=== PATIENT | female | born 1965 | race Caucasian/White ===

== ENCOUNTER → 2016-10-19 | Outpatient (CLI) | payer OTHER ==
--- NOTE | 2016-10-19 16:53 | MA ---
Screening Digital Mammogram With iCAD Analysis Clinical Indications: Routine screening. Her paternal grandmother was diagnosed with breast cancer in her 70s. Technique: Standard cephalocaudal and mediolateral oblique projections are obtained. The examination is processed by the iCAD computer-aided detection system. Comparison: July 2015, June 2014, March 2013, January 2012, January 2011, December 2009. Breast density: Type C; Heterogeneously dense. Findings: CAD was reviewed. There is possible developing architectural change in the anterior lower m edial left breast. No suspicious microcalcifications are seen. The right breast is stable in appearan ce. Impression: Possible developing left breast architectural change requires further evaluation. BI-RADS 0. Recommendation: Spot compression assessment of the left breast with ultrasound suggested if the abnor mality persists on diagnostic evaluation. [facility] will send a result letter to the patient. Dense breast parenchyma diminishes mammographic sensitivity. Negative mammography should not preclude additional workup of a clinically suspicious finding. The patient's information is entered into a reminder system with a target due date for her next mammo gram.
== END ==
LOC: BMCIMAGING 14:39
DX: Z12.31 Encounter for screening mammogram for malignant neoplasm of breast (principal)
CPT/HCPCS: G0202

== ENCOUNTER → 2016-10-29 | Outpatient (CLI) | payer OTHER ==
--- NOTE | 2016-10-29 13:20 | MA ---
Left Diagnostic Digital Mammogram with iCAD Clinical Indications: Possible architectural distortion on recent screening mammogram. Technique: Digital spot compression CC, spot mediolateral oblique and true lateral views. This exami nation was processed by the iCAD computer-aided detection system. Comparison: Recent mammogram. 2016, 2014, 2013 Breast Density: 3, 50-75%. Findings: Previous asymmetric density identified is no longer detected on the additional views or cedric e lateral views. No architectural distortion. This is consistent with normal overlapping breast paren chyma. Impression: ACR BI-RADS 2: Benign left mammogram. Recommendation: Annual mammograms with next screening mammograms in October 2017. [facility] will send a result letter to the patient. Negative mammography should not preclude additional workup of a clinically suspicious finding. Findings and recommendations have been discussed with the patient who agrees with the plan. The patient's information is entered into a reminder system with a target due date for her next mammo gram.
== END ==
LOC: BMCIMAGING 12:50
PROVIDERS: ATTEND Family Medicine
DX: Z12.39 Encounter for other screening for malignant neoplasm of breast (principal)
CPT/HCPCS: G0206

== ENCOUNTER → 2017-06-25 | Outpatient (CLI) | payer OTHER ==
--- NOTE | 2017-06-25 11:13 | CPEKG ---
Heart Rate: 76 RR Interval: 789 P-R Interval: 140 QRSD Interval: 82 QT Interval: 384 QTC Interval: 432 P [place]: 66 QRS [place]: 9 T Wave [place]: 56 EKG Severity - ABNORMAL ECG - EKG Impression: SINUS RHYTHM EKG Impression: ATRIAL PREMATURE COMPLEX EKG Impression: NONSPECIFIC T ABNORMALITIES, LATERAL LEADS Electronically Signed By: Nathan Lane 25-Jun-2017 12:22:29
== END ==
LOC: FCP 10:48
PROVIDERS: ATTEND General Practice
DX: R00.2 Palpitations (principal); R42 Dizziness and giddiness

== ENCOUNTER 2017-06-29 13:19 | Observation (INO) | payer OTHER ==
--- NOTE | 2017-06-29 13:29 | EDPHY ---
H & P Stated Complaint: palpitations/tachycardia/dizzy Time Seen by Provider: 06/29/17 13:29 HPI/ROS: CHIEF COMPLAINT: Palpitations, feeling flushed, presyncope HISTORY OF PRESENT ILLNESS: The patient presents to the ED with complaints of palpitations, tachycardia, presyncope and a sensation of flushing which has been present for the morning. She reports she has been struggling with these symptoms episodically for the past 6 weeks. She did have an EKG performed which demonstrated evidence of PACs. The patient reports she has had a dry nonproductive cough for the past several weeks. The patient denies any complaints of asymmetric calf pain or swelling. The patient denies any complaints of pleuritic or exertional chest pain. The patient reports she is physically active without symptoms of increasing dyspnea. The patient denies recent surgery or prolonged travel. The patient has no complaints of fever, cough or congestion. REVIEW OF SYSTEMS: A comprehensive 10 point review of systems is otherwise negative aside from elements mentioned in the history of present illness. Source: Patient - Personal History LMP (Females 10-55): Over 28 Days Ago Current Tetanus/Diphtheria Vaccine: Yes - Medical/Surgical History Hx Asthma: No Hx Chronic Respiratory Disease: No Hx Diabetes: No Hx Cardiac Disease: Yes Hx Renal Disease: No Hx Cirrhosis: No Hx Alcoholism: No Hx HIV/AIDS: No Hx Splenectomy or Spleen Trauma: No Other PMH: pac - Social History Smoking Status: Never smoked - Physical Exam Exam: General Appearance: Alert, no distress Eyes: Pupils equal and round no pallor or injection ENT, Mouth: Mucous membranes moist Respiratory: There are no retractions, lungs are clear to auscultation Cardiovascular: Tachycardic 145, regular Gastrointestinal: Abdomen is soft and nontender, no masses, bowel sounds normal Neurological: A&O, normal motor function, normal sensory exam, normal cranial nerves Skin: Warm and dry, no rashes Musculoskeletal: Neck is supple nontender Extremities: symmetrical, full range of motion Constitutional: Initial Vital Signs Temperature (C) 36.8 C 06/29/17 13:24 Heart Rate 145 H 06/29/17 13:24 Respiratory Rate 20 06/29/17 13:24 Blood Pressure 91/78 L 06/29/17 13:24 O2 Sat (%) 98 06/29/17 13:24 O2 Delivery Mode Room Air Allergies/Adverse Reactions: morphine Allergy (Verified 06/29/17 13:23) contrast iodine Allergy (Uncoded 06/29/17 13:23) Home Medications: Medication Instructions Recorded Progesterone 06/29/17 Medical Decision Making - Diagnostics EKG Interpretation: EKG: Complete interpretation has been separately recorded in the [employer] archive. Summary impression: Atrial fibrillation/flutter, rate 139 Imaging Results: Imaging Impressions Extremity Venous Study 06/29/17 15:23 Impression: There is no sonographic evidence of deep or superficial venous thrombosis in either leg. Findings were discussed with Alen Bray MD at 16:17, on 06/29/2017. Chest X-Ray 06/29/17 16:27 Impression: Normal. Clear lungs. No acute process. Chest x-ray PA lateral: Images reviewed by myself, negative for acute disease by my interpretation. ED Course/Re-evaluation: The patient presents the ED with episodic palpitations for the past several weeks. She was noted to have atrial flutter upon arrival. This resolved spontaneously while in the emergency department. Additionally the patient has had a dry nonproductive cough over the past several weeks. The patient was noted to have an elevated D-dimer of 1.0. The patient has a severe contrast allergy. She underwent bilateral lower extremity leg ultrasounds which demonstrated no evidence of a DVT. Given the patient's acute respiratory complaints with atrial tachycardia I do feel that we should exclude pulmonary embolism as an etiology of her symptoms. I have ordered a ventilation perfusion scan which can be performed later this evening. I do feel the patient should be admitted for further workup and observation. Consultation was made with Dr. Quick from the hospitalist service. Differential Diagnosis: Differential diagnosis considered includes atrial fibrillation, atrial flutter, DVT, PE, renal failure, myocardial infarction, metabolic abnormality - Data Points Laboratory Results: Laboratory Results 06/29/17 13:35 06/29/17 13:35 06/29/17 06/29/17 06/29/17 13:35 13:35 13:35 WBC 7.46 10^3/uL 10^3/uL (3.80-9.50) RBC 4.26 10^6/uL 10^6/uL (4.18-5.33) Hgb 14.5 g/dL g/dL (12.6-16.3) Hct 42.5 % % (38.0-47.0) MCV 99.8 fL fL (81.5-99.8) MCH 34.0 pg pg (27.9-34.1) MCHC 34.1 g/dL g/dL (32.4-36.7) RDW 12.8 % % (11.5-15.2) Plt Count 351 10^3/uL 10^3/uL (150-400) MPV 8.9 fL fL (8.7-11.7) Neut % (Auto) 66.6 % % (39.3-74.2) Lymph % (Auto) 22.8 % % (15.0-45.0) [place] % (Auto) 6.6 % % (4.5-13.0) Eos % (Auto) 3.2 % % (0.6-7.6) Baso % (Auto) 0.5 % % (0.3-1.7) Nucleat RBC Rel Count 0.0 % % (0.0-0.2) Absolute Neuts (auto) 4.97 10^3/uL 10^3/uL (1.70-6.50) Absolute Lymphs (auto) 1.70 10^3/uL 10^3/uL (1.00-3.00) Absolute Monos (auto) 0.49 10^3/uL 10^3/uL (0.30-0.80) Absolute Eos (auto) 0.24 10^3/uL 10^3/uL (0.03-0.40) Absolute Basos (auto) 0.04 10^3/uL 10^3/uL (0.02-0.10) Absolute Nucleated RBC 0.00 10^3/uL 10^3/uL (0-0.01) Immature Gran % 0.3 % % (0.0-1.1) Immature Gran # 0.02 10^3/uL 10^3/uL (0.00-0.10) PT 13.0 SEC SEC (12.0-15.0) INR 0.99 (0.83-1.16) D-Dimer 1.12 ug/mLFEU H ug/mLFEU (0.00-0.50) Sodium 136 mEq/L mEq/L (134-144) Potassium 4.0 mEq/L mEq/L (3.5-5.2) Chloride 103 mEq/L mEq/L (97-110) Carbon Dioxide 23 mEq/l mEq/l (22-31) Anion Gap 10 mEq/L mEq/L (8-16) BUN 15 mg/dL mg/dL (7-23) Creatinine 0.9 mg/dL mg/dL (0.6-1.0) Estimated GFR > 60 Glucose 111 mg/dL H mg/dL (70-100) Calcium 9.7 mg/dL mg/dL (8.5-10.4) Troponin I < 0.012 ng/mL ng/mL (0.000-0.034) NT-Pro-B Natriuret Pep 97 pg/mL pg/mL (0-125) Medications Given: Discontinued Medications Diphenhydramine HCl (Benadryl Injection) 50 mg IVP EDNOW ONE Stop: 06/29/17 15:18 Last Admin: 06/29/17 15:55 Dose: Not Given Sodium Chloride (Ns) 1,000 mls @ 0 mls/hr IV EDNOW ONE; Wide Open PRN Reason: Protocol Stop: 06/29/17 13:42 Last Admin: 06/29/17 13:43 Dose: 1,000 mls Methylprednisolone Sodium Succinate (Solu-Medrol) 125 mg IVP EDNOW ONE Stop: 06/29/17 15:18 Last Admin: 06/29/17 15:55 Dose: Not Given Departure - Departure Disposition: [facility] Inpatient Acute Clinical Impression: Atrial flutter, Elevated d-dimer Condition: Good
--- NOTE | 2017-06-29 13:33 | CPEKG ---
Heart Rate: 139 RR Interval: 432 QRSD Interval: 74 QT Interval: 304 QTC Interval: 463 QRS [place]: 1 T Wave [place]: 69 EKG Severity - ABNORMAL ECG - EKG Impression: A-FLUTTER W/ VARIED AV BLOCK, A-RATE 294 EKG Impression: LOW VOLTAGE IN FRONTAL LEADS EKG Impression: BORDERLINE ST DEPRESSION, ANTEROLATERAL LEADS Electronically Signed By: Alen Bray 29-Jun-2017 16:27:35
[2017-06-29] MEDS ORDERED: NS 1,000 ML IV ONE (13:41)
[2017-06-29 13:49] LABS: % IMMATURE GRANULYOCYTES 0.3 % (0.0-1.1); ABSOLUTE IMMATURE GRANULOCYTES 0.02 10^3/uL (0.00-0.10); ADD DIFF? NO; ADD MORPH? NO; ADD SCAN? NO; ATYPICAL LYMPHOCYTE FLAG 0 (0-99); FRAGMENT RBC FLAG 0 (0-99); HEMATOCRIT 42.5 % (38.0-47.0); HEMOGLOBIN 14.5 g/dL (12.6-16.3); LEFT SHIFT FLG 0 (0-99); LIPEMIA HEMOLYSIS FLAG 90 (0-99); MEAN CELL HEMOGLOBIN CONCENTR. 34.1 g/dL (32.4-36.7); MEAN CELL VOLUME 99.8 fL (81.5-99.8); MEAN PLATELET VOLUME 8.9 fL (8.7-11.7); PLATELET CLUMPS FLAG 0 (0-99); PLATELET COUNT 351 10^3/uL (150-400); RED BLOOD CELL COUNT 4.26 10^6/uL (4.18-5.33); RED CELL DISTRIBUTION WIDTH 12.8 % (11.5-15.2)
[2017-06-29 13:57] LABS: ANION GAP 10 mEq/L (8-16); CALCIUM 9.7 mg/dL (8.5-10.4); CARBON DIOXIDE 23 mEq/l (22-31); CHLORIDE 103 mEq/L (97-110); CREATININE 0.9 mg/dL (0.6-1.0); GLOMERULAR FILTRATION RATE > 60; GLUCOSE 111 mg/dL (70-100); SODIUM 136 mEq/L (134-144)
[2017-06-29 14:00] LABS: INR 0.99 (0.83-1.16)
[2017-06-29 14:27] LABS: TROPONIN I < 0.012 ng/mL (0.000-0.034)
[2017-06-29] MEDS ORDERED: IOPAMIDOL (ISOVUE 370) 100 ML BTL IV ONE (15:11)
[2017-06-29] MEDS ORDERED: methylPREDNISolone SOD SUCC 125 MG/2 ML VIAL IVP ONE (15:17)
[2017-06-29] MEDS ORDERED: ACETAMINOPHEN 325 MG TAB PO PRN (19:49)
[2017-06-29] MEDS ORDERED: ONDANSETRON DISINTEGRATING 4 MG TAB PO PRN (19:49)
[2017-06-29] MEDS ORDERED: ONDANSETRON 4 MG/2 ML VIAL IVP PRN (19:49)
--- NOTE | 2017-06-29 20:18 | PDGENHP ---
History and Physical - Chief Complaint Acute palpitations - History of Present Illness primary care provider: Dr. Emanuel Antoine HPI: 51-year-old female presents with acute palpitations characterized as fast , noticeable beating located in her upper chest with associated flushing, shortness of breath and fatigue. The patient reports the onset of symptoms approximately 6 weeks ago and duration has been intermittent thereafter. Occasionally the symptoms occur at rest, and on other times they are provoked exacerbated by physical activity. She has become notably symptomatic while playing tennis well as ambulating up flights of stairs. That being said, there have been occasions where the patient has attempted to provoked the symptoms while walking up flights of stairs at her primary care provider's office, and has been unable to do so. The only other associated symptom is a nonproductive cough which has been fairly persistent over the last 2 weeks and has been improving recently. The patient sought medical attention at her primary care provider office, and her electrolytes were reportedly normal, EKG reportedly demonstrated symptomatic PACs. History Information - Allergies/Home Medication List Allergies/Adverse Reactions: morphine Allergy (Mild, Verified 06/29/17 17:47) Itching codeine Allergy (Verified 06/29/17 17:47) Itching contrast iodine Allergy (Uncoded 06/29/17 13:23) Home Medications: Herbals/Supplements -Info Only 1 ea PO DAILY 06/29/17 [Last Taken Unknown] Multivitamins [Multivitamin (*)] 1 each PO DAILY 06/29/17 [Last Taken Unknown] Progesterone, Micronized [Progesterone] 100 mg PO HS 06/29/17 [Last Taken ] I have personally reviewed and updated: family history, medical history, social history, surgical history - Past Medical History Additional medical history: PACs. Mitral valve prolapse as a child - Surgical History Reports: no pertinent surgical hx - Family History Additional family history: no family history of atrial fibrillation - Social History Smoking Status: Never smoked Alcohol Use: Occasionally (no alcohol withdrawal history) Drug Use: Other ( occasionally takes CBD oil for symptomatic anxiety) Additional social history: very physically active, plays tennis, walks her dogs Review of Systems Review of Systems: ROS: 10pt was reviewed & negative except for what was stated in HPI & below Constitutional: Reports: weakness Cardiac: Reports: palpitations Respiratory: Reports: shortness of breath Physical Exam Physical Exam: Temp Pulse Resp BP Pulse Ox 36.9 C 67 13 122/73 H 97 06/29/17 19:49 06/29/17 19:49 06/29/17 19:49 06/29/17 19:49 06/29/17 19:49 Constitutional: no apparent distress, appears nourished, not in pain Eyes: PERRL, anicteric sclera, EOMI Ears, Nose, Mouth, Throat: moist mucous membranes, hearing normal, ears appear normal, no oral mucosal ulcers Cardiovascular: regular rate and rhythym, no murmur, rub, or gallop, No edema Respiratory: no respiratory distress, no rales or rhonchi, clear to auscultation Gastrointestinal: normoactive bowel sounds, soft, non-tender abdomen, no palpable masses Skin: No abrasion, No rash Neurologic: AAOx3, sensation intact bilaterally, No weakness, No facial droop Psychiatric: interacting appropriately, not anxious, not encephalopathic, thought process linear Lab Data & Imaging Review 06/29/17 13:35 06/29/17 13:35 WBC 7.46 10^3/uL (3.80-9.50) 06/29/17 13:35 RBC 4.26 10^6/uL (4.18-5.33) 06/29/17 13:35 Hgb 14.5 g/dL (12.6-16.3) 06/29/17 13:35 Hct 42.5 % (38.0-47.0) 06/29/17 13:35 MCV 99.8 fL (81.5-99.8) 06/29/17 13:35 MCH 34.0 pg (27.9-34.1) 06/29/17 13:35 MCHC 34.1 g/dL (32.4-36.7) 06/29/17 13:35 RDW 12.8 % (11.5-15.2) 06/29/17 13:35 Plt Count 351 10^3/uL (150-400) 06/29/17 13:35 MPV 8.9 fL (8.7-11.7) 06/29/17 13:35 Neut % (Auto) 66.6 % (39.3-74.2) 06/29/17 13:35 Lymph % (Auto) 22.8 % (15.0-45.0) 06/29/17 13:35 [place] % (Auto) 6.6 % (4.5-13.0) 06/29/17 13:35 Eos % (Auto) 3.2 % (0.6-7.6) 06/29/17 13:35 Baso % (Auto) 0.5 % (0.3-1.7) 06/29/17 13:35 Nucleat RBC Rel Count 0.0 % (0.0-0.2) 06/29/17 13:35 Absolute Neuts (auto) 4.97 10^3/uL (1.70-6.50) 06/29/17 13:35 Absolute Lymphs (auto) 1.70 10^3/uL (1.00-3.00) 06/29/17 13:35 Absolute Monos (auto) 0.49 10^3/uL (0.30-0.80) 06/29/17 13:35 Absolute Eos (auto) 0.24 10^3/uL (0.03-0.40) 06/29/17 13:35 Absolute Basos (auto) 0.04 10^3/uL (0.02-0.10) 06/29/17 13:35 Absolute Nucleated RBC 0.00 10^3/uL (0-0.01) 06/29/17 13:35 Immature Gran % 0.3 % (0.0-1.1) 06/29/17 13:35 Immature Gran # 0.02 10^3/uL (0.00-0.10) 06/29/17 13:35 PT 13.0 SEC (12.0-15.0) 06/29/17 13:35 INR 0.99 (0.83-1.16) 06/29/17 13:35 D-Dimer 1.12 ug/mLFEU (0.00-0.50) H 06/29/17 13:35 Sodium 136 mEq/L (134-144) 06/29/17 13:35 Potassium 4.0 mEq/L (3.5-5.2) 06/29/17 13:35 Chloride 103 mEq/L (97-110) 06/29/17 13:35 Carbon Dioxide 23 mEq/l (22-31) 06/29/17 13:35 Anion Gap 10 mEq/L (8-16) 06/29/17 13:35 BUN 15 mg/dL (7-23) 06/29/17 13:35 Creatinine 0.9 mg/dL (0.6-1.0) 06/29/17 13:35 Estimated GFR > 60 06/29/17 13:35 Glucose 111 mg/dL (70-100) H 06/29/17 13:35 Calcium 9.7 mg/dL (8.5-10.4) 06/29/17 13:35 Troponin I < 0.012 ng/mL (0.000-0.034) 06/29/17 13:35 NT-Pro-B Natriuret Pep 97 pg/mL (0-125) 06/29/17 13:35 TSH 0.198 uIU/mL (0.465-4.680) L 06/29/17 13:35 Visualized and Interpreted Chest x-ray results: Yes Chest X-Ray results: no infiltrate Visualized and Interpreted EKG results: Yes EKG Interpretation: Positive for: other ( atrial fibrillation with heart rate in the 150s) Assessment & Plan Assessment: 51-year-old female presents with acute atrial fibrillation Plan: 1. Atrial fibrillation. Acute, new problem this provider, further workup indicated. New diagnosis, symptomatic rapid ventricular response, resulting in hypotension on presentation, which is the likely cause of her recent symptoms of muscular fatigue and flushing - pulmonary embolism ruled out as provoking cause with V/Q scan - get echocardiogram given history of mitral valve prolapse - order outside records from [place] [facility] for her cardiac risk score performed approximately 6 months ago - given the patient's atrial fibrillation has spontaneously converted, would recommend stress testing to risk stratify as well as see if this level of activity provoked the symptoms - if the stress test does not provoke her symptoms and she has no evidence of obstructive coronary disease, then I would recommend outpatient event monitoring and outpatient cardiology follow-up - her TSH level is somewhat suppressed at 0.2, will get free T3 and free T4 levels - hold on antiarrhythmic or heriberto blocking agents, hold on systemic anticoagulation - would recommend aspirin 81 mg for CVA prevention given her low chads Vasc score - given patient has had regular recurrence of her symptoms over the past 6 weeks , I have counseled the patient that I suspect that these symptoms will continue to occur Diet. Regular Prophylaxis. Low risk patient, SCDs Code. Full Disposition. Anticipated discharge is 06/30/2017, pending further workup as outlined above. I have discussed patient's presentation with Dr. Rocky Bray, we agreed the patient required further immediate workup given her risk of pulmonary embolism on estrogen replacement therapy.
[2017-06-29] MEDS ORDERED: PROGESTERONE,MICR 100 MG CAP PO SCH (21:00)
[2017-06-30] MEDS ORDERED: MELATONIN 3 MG TAB PO SCH (00:15)
[2017-06-30 05:40] LABS: ANION GAP 10 mEq/L (8-16); CALCIUM 9.1 mg/dL (8.5-10.4); CARBON DIOXIDE 22 mEq/l (22-31); CHLORIDE 106 mEq/L (97-110); CREATININE 0.7 mg/dL (0.6-1.0); GLOMERULAR FILTRATION RATE > 60; GLUCOSE 68 mg/dL (70-100); MAGNESIUM 1.8 mg/dL (1.6-2.3); POTASSIUM 4.3 mEq/L (3.5-5.2); SODIUM 138 mEq/L (134-144)
[2017-06-30] MEDS ORDERED: Herbals/Supplements -Info Only PO SCH (09:00)
[2017-06-30] MEDS ORDERED: MULTIVITAMINS 1 EACH TAB PO SCH (09:00)
[2017-06-30] MEDS ORDERED: ASPIRIN EC 81 MG TAB PO SCH (09:00)
[2017-06-30] MEDS ORDERED: FLU VACC QS 2017-18 (3YR+)/PF 0.5 ML SYR (FLUARIX QUAD) IM ONE (10:54)
--- NOTE | 2017-06-30 14:51 | ASMTCMCOM ---
CM Note CM Note Notes: Reviewed patient's chart/progress notes. Admitted with A-Fib; Lives at home with , no therapy ordered. Anticipate patient will discharge home with support of family when medically stable. CM is available should needs arise. Date Signed: 06/30/2017 02:50 PM Electronically Signed By:Anaid Lebron RN
[2017-06-30] MEDS ORDERED: REGADENOSON 0.4 MG/5 ML SYR IVP ONE (14:52)
--- NOTE | 2017-06-30 16:20 | ECHO ---
[email or web address] [address] [address] Main: [phone] Fax: Transthoracic Echocardiogram Name: ALLEN LEWIS MR#: [id number] Study Date: 06/30/2017 Study Time: 09:26 AM Date of : 1965 Age: 51 year(s) Height: 167.6 cm (66 in.) Weight: 63.96 kg (141 lb.) BSA: 1.72 m2 Gender: Female Examination: Echo Indication: Eval new atrial fibrillation Image Quality: Contrast: Requested by: Mo Quick BP: 94 mmHg/58 mmHg Heart Rate: Rhythm: Indication: Eval new atrial fibrillation Procedure Staff Referring Physician: [employer] Ebs Developer: Rose Flor Reading Physician: Phani Bueno Requesting MD: Conclusions: ? Normal global systolic LV function (EF 72 %). ? Normal size right ventricle. ? The mitral valve is normal in appearance and function. ? There is borderlinbe MVP involving both leaflets..Mild mitral valve regurgitation is present. ? Mild tricuspid regurgitation is present. The pulmonary artery pressure is normal. ? The aorta is normal. Measurements: Chambers Valvular Assessment AV/MV Valvular Assessment TV/PV Normal Normal Normal Name Value Range Name Value Range Name Value Range Ao Sheri (MM): 2.7 cm (2.2 cm-3.7 AV Vmax: 1.11 m/s (1 m/s-1.7 TR Vmax: 2.08 mm/s ( - ) cm) m/s) TR PGmax: 17 mmHg ( - ) IVSd (2D): 0.5 cm (0.6 cm-1.1 AV maxP mmHg ( - ) syst. PAP: 22 mmHg ( - ) cm) MV E Vmax: 0.56 cm/s ( - ) LVDd (2D): 5.5 cm (3.9 cm-5.3 MV A Vmax: 0.45 cm/s ( - ) cm) MV E/A: 1.24 ( - ) LVDs (2D): 3.6 cm (2.1 cm-4 cm) LVPWd (2D): 0.7 cm ( - ) LVEF (MOD4): 72 % (>=55 %) Continued Measurements: Chambers Valvular Assessment AV/MV Valvular Assessment TV/PV Name Value Name Value Name Value LA Area: 17.3 cm? MV E/E' Septal: 6.60 CVP (est.): 5 LA Volume: 54 ml MV E/E' Lateral: 6.60 Patient: ALLEN LEWIS Study Date: 06/30/2017 Page 1 of 2 09:26 AM LA Volume Index: 31.4 ml/m? Findings: Left Ventricle: Normal size left ventricle. No LV hypertrophy. Normal global systolic LV function (EF 72 %). Right Ventricle: Normal size right ventricle. Left Atrium: The left atrium is normal in size. Right Atrium: The right atrium is normal in size. Mitral Valve: The mitral valve is normal in appearance and function. There is borderlinbe MVP involving both leaflets..Mild mitral valve regurgitation is present. Aortic Valve: The aortic valve is normal in appearance and function. Tricuspid Valve: The tricuspid valve is normal in appearance and function. Mild tricuspid regurgitation is present. The pulmonary artery pressure is normal. Pulmonic Valve: The pulmonic valve is normal in appearance and function. Mild pulmonic valve regurgitation is noted. Great Vessels: The aorta is normal. Pericardium: No pericardial effusion. (No Signature Object) Patient: ALLEN LEWIS Study Date: 06/30/2017 Page 2 of 2 09:26 AM [id number]
[2017-06-30 16:33] VITALS: BP 103/73; PULSE 68; RESP 14; TEMP 99.5; O2SAT 97
--- NOTE | 2017-06-30 20:46 | GDS ---
[f rep st] DISCHARGE SUMMARY DISCHARGE DIAGNOSES: 1. Atrial fibrillation with rapid ventricular response, spontaneously converted to sinus. 2. Anxiety. 3. History of mitral valve prolapse as a child. HISTORY OF PRESENT ILLNESS: A 51-year-old female who presents with complaints of palpitations and fo und to be in atrial fibrillation. For details of the patient's initial presentation, please see the history and physical dated 06/29/2017. CONSULTATIVE SERVICES: Include Cardiology. PROCEDURES: 1. On 06/29/2017 patient had a V/Q scan which was negative for clot. 2. On 06/29/2017 patient had a transthoracic echocardiogram that showed normal LV size and function. 3. On 06/30/2017 patient underwent myocardial stress testing, which was negative for inducible ische kwame, showing normal ejection fraction. HOSPITAL COURSE BY ISSUE: Atrial fibrillation with rapid ventricular response. The patient spontane ously converted to sinus on her own, remained in sinus with controlled rates. The morning after pres entation, she was seen by Cardiology, had a thorough evaluation including V/Q, echo and cardiac stres s testing all which was negative. The patient is being discharged on a daily aspirin and Holter frank toring per Cardiology. She is to follow in the outpatient setting with Dr. Komal Meyer on August 09, 2017 for post monitoring followup of her what is now lone atrial fibrillation. MEDICATIONS AT THE TIME OF DISPOSITION: Please reference med rec printed on 06/30/2017. Of note, we are adding daily 81 mg aspirin to this patient's list. PENDING STUDIES: At the time of this dictation are none. FOLLOWUP APPOINTMENTS: Include with Dr. Komal Meyer on 08/09/2017. I spent greater than 30 minutes in the planning and coordination of this discharge. /[id number]/MODL
--- NOTE | 2017-06-30 23:22 | CPR ---
[f rep st] NONINVASIVE CARDIAC PROCEDURE REPORT PROCEDURE: Nuclear treadmill stress test. REASON FOR TEST: 1. Palpitations. 2. Paroxysmal atrial fibrillation. Resting EKG shows a regular sinus rhythm with occasional PVCs. Heart rate 79, blood pressure 106/72. She is asymptomatic. STRESS PORTION: She was exercised according to the Ryan protocol for a total of 10 minutes and 29 s econds. Peak heart rate 160. Maximal MET level 11.0. Max blood pressure 172/76. During exercise, PVCs abated. She had excellent exercise tolerance. No ischemic changes on EKG. RECOVERY: She spontaneously recovered with no PVCs noted. Resting blood pressure 132/80, resting he art rate 89. She remains asymptomatic at this time. She currently is stable for nuclear imaging. /[id number]/MODL
--- NOTE | 2017-07-01 09:27 | ASDISCHSUM ---
Discharge Information Plan Status:Home with No Needs Medically Cleared to Leave:06/30/2017 Discharge Date:06/30/2017 04:51 PM CM D/C Disposition:Home, Routine, Self-Care ADT D/C Disposition:Home, Routine, Self-Care Projected Discharge Date:06/30/2017 12:00 AM Transportation at D/C: Discharge Delay Reason: Follow-Up Date:06/30/2017 12:00 AM Discharge Slot: Final Diagnosis: Placement Information Patient Contact Information Contact Name:NOVA Relationship: Address:[address] [place] Alternate Phone: State/Zip Code:[place] [address] Email: Financial Information Financial Class:HMO and PPO Plans Primary Plan Desc:[employer] P[employer] POS HMO Primary Plan Number:[id number] Secondary Plan Desc: Secondary Plan Number: Assessment Information [facility] CM Progress Note CM Note CM Note Notes: Reviewed patient's chart/progress notes. Admitted with A-Fib; Lives at home with , no therapy ordered. Anticipate patient will discharge home with support of family when medically stable. CM is available should needs arise. Date Signed: 06/30/2017 02:50 PM Electronically Signed By:Anaid Lebron RN Intervention Information
== END 2017-06-30 16:51 | disposition home or self-care (01) ==
LOC: F2W 18:35
PROVIDERS: ADMIT Internal Medicine; ATTEND Hospitalist
DX: I48.0 Paroxysmal atrial fibrillation (principal); I48.92 Unspecified atrial flutter; R00.2 Palpitations; F41.9 Anxiety disorder, unspecified; Z91.041 Radiographic dye allergy status; Z23 Encounter for immunization; Z86.79 Personal history of other diseases of the circulatory system
CPT/HCPCS: 71020; 78452; 78582; 90471; 93005; 93017; 93306; 93970; 96360; 99285; A9500; A9540; A9558; G0378; 84481-90; G0008; J1200; J2785; Q9967

== ENCOUNTER → 2017-11-24 | Outpatient (CLI) | payer OTHER | LOC: FIMAGING 12:07 | PROVIDERS: ATTEND Family Medicine | DX: Z12.31 Encounter for screening mammogram for malignant neoplasm of breast (principal) ==

== ENCOUNTER → 2018-12-27 | Outpatient (CLI) | payer OTHER | LOC: FIMAGING 09:55 | PROVIDERS: ATTEND Naturopath | DX: Z12.31 Encounter for screening mammogram for malignant neoplasm of breast (principal); E03.9 Hypothyroidism, unspecified; G47.00 Insomnia, unspecified; R53.83 Other fatigue; E34.9 Endocrine disorder, unspecified; E53.8 Deficiency of other specified B group vitamins; Z80.3 Family history of malignant neoplasm of breast ==